=== PATIENT | female | born 1995 | race Native Hawaiian/Other Pacific Islander ===

== ENCOUNTER 2017-12-11 00:33 | Emergency (ER) | payer OTHER ==
[2017-12-11 01:16] VITALS: BP 114/64; PULSE 113; RESP 19; TEMP 101.8; O2SAT 98
--- NOTE | 2017-12-11 01:30 | ED PDOC ---
HPI: CCC, URI, Sore Throat Time Seen by Provider: 12/11/17 00:52 Chief Complaint (Nursing): Flu-like Symptoms Chief Complaint (Provider): fever History Per: Patient History/Exam Limitations: no limitations Onset/Duration Of Symptoms: Days (1) Current Symptoms Are (Timing): Still Present Additional History Per: Patient Additional Complaint(s): 22 y/o female presents with fever x 1 day. Associated nasal congestion, bodyaches, generalized weakness. Patient's significant other is here sick with same. Denies headache, neck pain, vomiting, abdominal pain, changes in bowel movements, urinary symptoms, recent travel. Last dose Tylenol taken 18:00 last night Past Medical History Reviewed: Historical Data, Nursing Documentation, Vital Signs Vital Signs: Last Vital Signs Temp 101.8 F H 12/11/17 01:12 Pulse 113 H 12/11/17 01:12 Resp 19 12/11/17 01:12 BP 114/64 12/11/17 01:12 Pulse Ox 98 12/11/17 01:31 - Medical History PMH: No Chronic Diseases - Surgical History Surgical History: No Surg Hx - Family History Family History: States: No Known Family Hx - Home Medications Home Medications: Ambulatory Orders Medication Instructions Recorded Ibuprofen [Motrin Tab] 1 tab PO Q6 PRN #20 tab 12/11/17 Oseltamivir [Tamiflu] 75 mg PO BID #9 cap 12/11/17 - Allergies Allergies/Adverse Reactions: Allergies Allergy/AdvReac Type Severity Reaction Status Date / Time No Known Allergies Allergy Verified 12/11/17 01:16 Review of Systems ROS Statement: Except As Marked, All Systems Reviewed And Found Negative Constitutional: Positive for: Fever, Chills, Weakness ENT: Positive for: Nose Congestion Physical Exam - Reviewed Nursing Documentation Reviewed: Yes Vital Signs Reviewed: Yes - Physical Exam Appears: Positive for: Well, Non-toxic, No Acute Distress Head Exam: Positive for: ATRAUMATIC, NORMAL INSPECTION, NORMOCEPHALIC Skin: Positive for: Normal Color Eye Exam: Positive for: Normal appearance ENT: Positive for: Normal ENT Inspection Cardiovascular/Chest: Positive for: Regular Rate, Rhythm Respiratory: Positive for: Normal Breath Sounds Gastrointestinal/Abdominal: Positive for: Normal Exam Back: Positive for: Normal Inspection Extremity: Positive for: Normal ROM Neurologic/Psych: Positive for: Alert, Oriented - ECG O2 Sat by Pulse Oximetry: 98 - Progress ED Course And Treament: Patient educated on findings, discharged with rx ibuprofen, tamiflu (doses given in ED) Advised fluids, rest. Follow up PMD 2-3 days. Disposition - Clinical Impression Clinical Impression: Influenza-like symptoms - Patient ED Disposition Is Patient to be Admitted: No Counseled Patient/Family Regarding: Diagnosis, Need For Followup, Rx Given - Disposition Disposition: Routine/Home Disposition Time: 01:30 Condition: STABLE Prescriptions: Ibuprofen [Motrin Tab] 1 tab PO Q6 PRN #20 tab PRN Reason: Fever >100.4 F Oseltamivir [Tamiflu] 75 mg PO BID #9 cap Instructions: Influenza (ED) Forms: [employer] (N[place]ali), [facility] ED School/Work Excuse
== END 2017-12-11 02:16 | disposition home or self-care (01) ==
LOC: H.ER 00:33
DX: J11.1 Influenza due to unidentified influenza virus with other respiratory manifestations (principal)

== ENCOUNTER 2018-06-19 14:05 | Emergency (ER) | payer OTHER ==
[2018-06-19 14:10] VITALS: BP 114/74; PULSE 80; RESP 16; TEMP 98; O2SAT 100
--- NOTE | 2018-06-19 14:25 | ED PDOC ---
HPI: General Adult Time Seen by Provider: 06/19/18 14:15 Chief Complaint (Nursing): ENT Problem Chief Complaint (Provider): ENT Problem History Per: Patient History/Exam Limitations: no limitations Onset/Duration Of Symptoms: Days (x2-3) Current Symptoms Are (Timing): Still Present Additional Complaint(s): 23 y/o female with no significant PMHx presents to the ED complaining of tender and palpable bump to the right earlobe, onset 2-3 days. Patient states bump is located where her ear is pierced. Denies any other complaints. PMD: None Provided. Past Medical History Reviewed: Historical Data, Nursing Documentation, Vital Signs Vital Signs: Last Vital Signs Temp 98.0 F 06/19/18 14:07 Pulse 80 06/19/18 14:07 Resp 16 06/19/18 14:07 BP 114/74 06/19/18 14:07 Pulse Ox 100 06/19/18 14:48 - Medical History PMH: No Chronic Diseases - Surgical History Surgical History: No Surg Hx - Family History Family History: States: Unknown Family Hx - Home Medications Home Medications: Ambulatory Orders Medication Instructions Recorded Ibuprofen [Motrin Tab] 1 tab PO Q6 PRN #20 tab 12/11/17 Oseltamivir [Tamiflu] 75 mg PO BID #9 cap 12/11/17 Cephalexin [Keflex] 500 mg PO BID #14 capsule 06/19/18 - Allergies Allergies/Adverse Reactions: Allergies Allergy/AdvReac Type Severity Reaction Status Date / Time No Known Allergies Allergy Verified 06/19/18 14:07 Review of Systems ROS Statement: Except As Marked, All Systems Reviewed And Found Negative ENT: Positive for: Ear Pain Physical Exam - Reviewed Nursing Documentation Reviewed: Yes Vital Signs Reviewed: Yes - Physical Exam Appears: Positive for: No Acute Distress Head Exam: Positive for: ATRAUMATIC Skin: Positive for: Normal Color, Warm Eye Exam: Positive for: Normal appearance ENT: Positive for: Normal ENT Inspection, Other (3 cm erythema surrounding piercing hole on right earlobe. No drainage. (+) tenderness to palpation) Neck: Positive for: Normal Cardiovascular/Chest: Negative for: Bradycardia, Tachycardia Respiratory: Negative for: Accessory Muscle Use, Respiratory Distress Extremity: Positive for: Normal ROM. Negative for: Deformity Neurologic/Psych: Positive for: Alert, Oriented. Negative for: Motor/Sensory Deficits - ECG O2 Sat by Pulse Oximetry: 100 (RA) Pulse Ox Interpretation: Normal Medical Decision Making Medical Decision Making: Scribe Attestation: Documented by Carina Overton, acting as a scribe for Ashley Johnson PA-C. Provider Scribe Attestation: All medical record entries made by the Scribe were at my direction and personally dictated by me. I have reviewed the chart and agree that the record accurately reflects my personal performance of the history, physical exam, medical decision making, and the department course for this patient. I have also personally directed, reviewed, and agree with the discharge instructions and disposition. Disposition - Clinical Impression Clinical Impression: Infection of ear lobe - Patient ED Disposition Is Patient to be Admitted: No Counseled Patient/Family Regarding: Diagnosis, Need For Followup, Rx Given - Disposition Referrals: [facility] [Outside] Disposition: Routine/Home Disposition Time: 14:22 Condition: STABLE Prescriptions: Cephalexin [Keflex] 500 mg PO BID #14 capsule Instructions: Cellulitis and Erysipelas (Skin Infections) Forms: [employer] ([place]amoan)
== END 2018-06-19 18:50 | disposition home or self-care (01) ==
LOC: H.ER 14:05
DX: L08.9 Local infection of the skin and subcutaneous tissue, unspecified (principal)